=== PATIENT | male | born 1955 ===

== ENCOUNTER 2016-12-06 06:47 | Day surgery (SDC) | payer BC ==
[2016-11-29 11:17] VITALS: BMI 24.3
[2016-12-06] MEDS ORDERED: Propofol 10 mg/ml Inj (20 ML) ONE (07:50)
[2016-12-06] MEDS ORDERED: Lidocaine 1% Inj (20ml) ONE (07:50)
[2016-12-06] MEDS ORDERED: Sodium Chloride 0.9% 1,000 ML IV SCH (08:30)
[2016-12-06 09:24] VITALS: RESP 16; TEMP 97.4; O2SAT 100
[2016-12-06 09:29] VITALS: BP 112/81; PULSE 53
== END 2016-12-06 09:40 | disposition home or self-care (01) ==
LOC: ENDO 06:47
PROVIDERS: ATTEND Internal Medicine Gastroenterology
DX: Z12.11 Encounter for screening for malignant neoplasm of colon (principal); K64.0 First degree hemorrhoids
CPT/HCPCS: 45378; 82948; J2704; J7040 ×2

== ENCOUNTER 2017-08-29 22:52 | Observation (INO) | payer BC ==
--- NOTE | 2017-08-29 23:30 | ED PDOC ---
Arrival/HPI - General Chief Complaint: Medical Clearance Time Seen by Provider: 08/29/17 23:24 Historian: Patient - History of Present Illness Narrative History of Present Illness (Text): 08/29/17 23:25 A 62 year old male, whose past medical history includes hyperlipidemia and diabetes, is brought into the emergency department from another institution for a complaint of sudden onset nausea, diaphoresis, headache, and lightheadedness. The patient notes that he began to experience his symptoms today at around 2PM and was seen in an urgent care and then transferred to [facility]. The patient denies fevers, chills, chest pain, shortness of breath, dyspnea on exertion, cough, abdominal pain, vomiting, diarrhea, urinary/bowel changes, or any other complaint. PMD: Dr. Aguirre Time/Duration: Other (2 PM today) Symptom Onset: Sudden Symptom Course: Unchanged Activities at Onset: Rest, Light Context: Home Past Medical History - Provider Review Nursing Documentation Reviewed: Yes - Infectious Disease Hx of Infectious Diseases: None - Tetanus Immunization Tetanus Immunization: Unknown - Cardiac Hx Pacemaker: No - Neurological Hx Paralysis: No - Endocrine/Metabolic Hx Hypothyroidism: Yes - Hematological/Oncological Hx Blood Transfusions: No Hx Blood Transfusion Reaction: No - Musculoskeletal/Rheumatological Hx Musculoskeletal Disorders: No - Psychiatric Hx Emotional Abuse: No Hx Physical Abuse: No Hx Substance Use: No - Anesthesia Hx Anesthesia Reactions: No Hx Malignant Hyperthermia: No - Suicidal Assessment Feels Threatened In Home Enviroment: No Family/Social History - Physician Review Nursing Documentation Reviewed: Yes Family/Social History: No Known Family HX Smoking Status: Never Smoked Hx Alcohol Use: No Hx Substance Use: No Hx Substance Use Treatment: No Allergies/Home Meds Allergies/Adverse Reactions: Allergies No Known Allergies Allergy (Verified 08/29/17 22:58) Home Medications: Home Meds Medication Instructions Recorded Confirmed Atorvastatin [Lipitor] 20 mg PO DIN 11/29/16 08/29/17 metFORMIN [glucOPHAGE] 500 mg PO BID 11/29/16 08/29/17 Review of Systems - Physician Review All systems were reviewed & negative as marked: Yes - Review of Systems Constitutional: absent: Fevers, Night Sweats Respiratory: absent: SOB, Cough Cardiovascular: absent: Chest Pain, JOE Gastrointestinal: Nausea. absent: Abdominal Pain, Stool Changes, Diarrhea, Vomiting Genitourinary Male: absent: Urinary Output Changes Neurological: Headache, Dizziness (Lightheaded) Endocrine: Diaphoresis Physical Exam Vital Signs Reviewed: Yes Vital Signs Temp Pulse Pulse Resp BP Pulse Ox 08/30/17 03:15 99 08/30/17 03:00 97.8 F 59 L 60 18 109/77 08/30/17 02:35 62 18 111/60 97 08/29/17 23:00 97.9 F 78 18 115/79 99 Temperature: Afebrile Blood Pressure: Normal Pulse: Regular Respiratory Rate: Normal Appearance: Positive for: Well-Appearing, Non-Toxic, Comfortable Pain Distress: None Mental Status: Positive for: Alert and Oriented X 3 - Systems Exam Head: Present: Atraumatic, Normocephalic Pupils: Present: PERRL Extroacular Muscles: Present: EOMI, Other (Patient is noted to have periorbital twitching while being interviewed.) Conjunctiva: Present: Normal Mouth: Present: Moist Mucous Membranes Neck: Present: Normal Range of Motion. No: JVD Respiratory/Chest: Present: Clear to Auscultation, Good Air Exchange. No: Respiratory Distress, Accessory Muscle Use Cardiovascular: Present: Normal S1, S2. No: Regular Rate and Rhythm (Slow, regular rhythm.), Murmurs Abdomen: No: Tenderness, Distention, Peritoneal Signs, Mass/Organomegaly Back: Present: Normal Inspection Upper Extremity: Present: Normal Inspection. No: Cyanosis, Edema Lower Extremity: Present: Normal Inspection, NORMAL PULSES (2+ bipedal pulses.) . No: Edema Neurological: Present: GCS=15, CN II-XII Intact, Speech Normal, Motor Func Grossly Intact, Normal Sensory Function Skin: Present: Dry, Normal Color, Diaphoretic (mildly diaphoretic to touch.), Cold. No: Rashes Psychiatric: Present: Alert, Oriented x 3, Normal Insight, Normal Concentration Medical Decision Making ED Course and Treatment: 08/29/17 23:30 Impression: A 62 year old male presents to the emergency department from another institution with complaint of sudden onset headache, nausea, diaphoresis, and lightheadedness. Differential Diagnosis included but are not limited to: Atypical angina Plan: -- EKG -- Chest X-ray -- Labs -- Urinalysis -- Reassess and disposition Progress Notes: 08/29/17 23:34: Will admit patient to Dr. Aguirre's service for observation. 08/29/17 23:42 EKG: Ordered, reviewed, and independently interpreted the EKG. Rate : 57 BPM Rhythm : Sinus Bradycardia Interpretation : Normal axis. Mild increase in QRS interval. Right Bundle pattern. No acute ST-T wave changes. No ectopy. 08/30/17 03:39: Chest X-ray read and interpreted by me shows no acute disease. Negative Chest X-ray . 08/30/17 03:42 I have discussed the results and plan with the patient, who expresses understanding. Patient in agreement with plan to be admitted to Dr. Aguirre's service. - Lab Interpretations Lab Results: 08/29/17 23:52 08/29/17 23:52 Lab Results 08/30/17 00:22: Urine Color Light yellow, Urine Appearance Clear, Urine pH 7.5, Ur Specific [place] 1.025, Urine Protein 100 H, Urine Glucose (UA) Negative, Urine Ketones 15 H, Urine Blood Negative, Urine Nitrate Negative, Urine Bilirubin Negative, Urine Urobilinogen 0.2, Ur Leukocyte Esterase Negative, Urine RBC 1 - 3, Urine WBC 0 - 2, Ur Epithelial Cells 1 - 3, Urine Bacteria Mod , Urine Other Usperm 08/29/17 23:52: Sodium 136, Potassium 4.4, Chloride 101, Carbon Dioxide 25, Anion Gap 14, BUN 17, Creatinine 0.7 L, Est GFR ( Amer) > 60, Est GFR ( Non-Af Amer) > 60, Random Glucose 124 H, Calcium 9.2, Magnesium 2.1, Total Bilirubin 0.9, AST 34, ALT 35, Alkaline Phosphatase 48, Lactate Dehydrogenase 426, Total Creatine Kinase 205, Troponin I < 0.01, Total Protein 7.4, Albumin 4.3, Globulin 3.0, Albumin/Globulin Ratio 1.4 08/29/17 23:52: PT 11.9, INR 1.04 08/29/17 23:52: WBC 9.9, RBC 4.96, Hgb 13.6 L, Hct 40.8 L, MCV 82.3, MCH 27.4, MCHC 33.3, RDW 12.8, Plt Count 149, MPV 11.0, Gran % 80.9 H, Lymph % (Auto) 13.4 L, [place] % (Auto) 5.5, Eos % (Auto) 0.1 L, Baso % (Auto) 0.1, Gran # 8.00 H , Lymph # (Auto) 1.3, [place] # (Auto) 0.5, Eos # (Auto) 0.0, Baso # (Auto) 0.01 I have reviewed the lab results: Yes - RAD Interpretation Radiology Orders: 08/29/17 23:24 CHEST PORTABLE [RAD] Stat - EKG Interpretation Interpreted by ED Physician: Yes Type: 12 lead EKG - Medication Orders Current Medication Orders: Discontinued Medications Ondansetron HCl (Zofran Inj) 4 mg IVP STAT STA Stop: 08/29/17 23:59 Last Admin: 08/30/17 00:07 Dose: 4 mg IVP Administration Document 08/30/17 00:07 SS (Rec: 08/30/17 00:07 SS [id number]) Charges for Administration # of IVP Administrations 1 - Scribe Statement The provider has reviewed the documentation as recorded by the Scribe Liss Archibald Provider Scribe Attestation: All medical record entries made by the Scribe were at my direction and personally dictated by me. I have reviewed the chart and agree that the record accurately reflects my personal performance of the history, physical exam, medical decision making, and the department course for this patient. I have also personally directed, reviewed, and agree with the discharge instructions and disposition. Disposition/Present on Arrival - Present on Arrival Any Indicators Present on Arrival: No History of DVT/PE: No History of Uncontrolled Diabetes: No Urinary Catheter: No History of Decub. Ulcer: No History Surgical Site Infection Following: None - Disposition Have Diagnosis and Disposition been Completed?: Yes Diagnosis: Angina pectoris Disposition: HOSPITALIZED Disposition Time: 04:39 Patient Plan: Observation Condition: FAIR
[2017-08-30 00:28] LABS: BASO # 0.01 K/mm3 (0.0-2.0); BASO % 0.1 % (0.0-3.0); EOS % 0.1 % (1.5-5.0); GRAN % 80.9 % (50.0-68.0); HEMOGLOBIN 13.6 g/dL (14.0-18.0); LYMPH # 1.3 (1.2-3.4); LYMPH % 13.4 % (22.0-35.0); MEAN CELL VOLUME 82.3 fl (80.0-105.0); MEAN CORPUSCULAR HEMOGLOBIN 27.4 pg (25.0-35.0); MEAN CORPUSCULAR HGB CONC 33.3 g/dl (31.0-37.0); MONO # 0.5 (0.1-0.6); MONO % 5.5 % (1.0-6.0); RBC 4.96 10^6/uL (3.5-6.1); RED CELL DISTRIBUTION WIDTH 12.8 % (11.5-14.5); WHITE BLOOD COUNT 9.9 10^3/ul (4.5-11.0)
[2017-08-30 00:57] LABS: ALB/GLOB RATIO 1.4 (1.1-1.8); ALBUMIN 4.3 g/dL (3.0-4.8); ALT/SGPT 35 U/L (7-56); AST/SGOT 34 U/L (17-59); BLOOD UREA NITROGEN 17 mg/dL (7-21); CALCIUM 9.2 mg/dL (8.4-10.5); GFR AFRICAN-AMERICAN > 60; GFR NON-AFRICAN AMERICAN > 60; INR 1.04 (0.93-1.08); PROTHROMBIN TIME 11.9 SECONDS (9.4-12.5)
[2017-08-30 01:06] LABS: PH,URINE 7.5 (4.7-8.0); URINE BILIRUBIN NEGATIVE (NEGATIVE); URINE BLOOD NEGATIVE (NEGATIVE); URINE GLUCOSE (UA) NEGATIVE (NEGATIVE); URINE LEUKOCYTE ESTERASE NEGATIVE Leu/uL (NEGATIVE); URINE PROTEIN 100 mg/dL (<30 mg/dL); URINE UROBILINOGEN 0.2 E.U./dL (<1 E.U./dL)
[2017-08-30 01:08] LABS: URINE APPEARANCE CLEAR (CLEAR); URINE COLOR LIGHT YELLOW (YELLOW)
[2017-08-30 01:35] LABS: TROPONIN I < 0.01 ng/mL
[2017-08-30 01:54] LABS: URINE WBC 0 - 2 /hpf (0-6)
[2017-08-30 01:55] LABS: URINE BACTERIA MOD (NEG)
[2017-08-30 03:55] VITALS: BMI 24.5
[2017-08-30 06:17] VITALS: O2SAT 98
[2017-08-30 07:47] LABS: TROPONIN I < 0.01 ng/mL
[2017-08-30 08:59] LABS: IRON 68 ug/dL (45-180)
[2017-08-30 09:10] LABS: % IRON SATURATION 19 % (20-55); TOTAL IRON BINDING CAPACITY 359 ug/dL (261-462)
--- NOTE | 2017-08-30 09:13 | RAD ---
HISTORY: Chest pain COMPARISON: 07/26/2013 FINDINGS: LUNGS: No active pulmonary disease. PLEURA: No significant pleural effusion identified, no pneumothorax apparent. CARDIOVASCULAR: Normal. OSSEOUS STRUCTURES: No significant abnormalities. VISUALIZED UPPER ABDOMEN: Normal. OTHER FINDINGS: None. IMPRESSION: No active disease. No significant interval change compared to the prior examination(s).
[2017-08-30] MEDS: Insulin Reg-LOW-Coverage SC SCH ×2 (12:17→17:07)
[2017-08-30 12:31] LABS: FOLATE 15.8 ng/mL
[2017-08-30 13:20] VITALS: BP 124/76; PULSE 64; RESP 21; TEMP 97
[2017-08-30 13:25] LABS: TROPONIN I < 0.01 ng/mL
--- NOTE | 2017-08-30 13:50 | CON ---
DATE: 08/30/2017 REASON FOR CONSULTATION: Nausea with associated bradycardia. HISTORY OF PRESENT ILLNESS: This is a 62-year-old male who is known to have diabetes, hyperlipidemia. States that yesterday, with nausea, he also felt , headache, and lightheadedness. Denies any chest pain, shortness of breath, or palpitation. No history of diarrhea. The patient felt like vomiting, but he states he never vomited. The patient's nausea continued. Now, the patient does not have any nausea, he has improved, and he does not have any other symptoms associated with it. The patient went to the Emergency Room and was found to have bradycardia at the time of nausea. PAST MEDICAL HISTORY: Not significant except the patient has diabetes and hyperlipidemia. PERSONAL HISTORY: No history of smoking. No history of drinking. ALLERGIES: DENIES ANY ALLERGIES. FAMILY HISTORY: Brother has coronary artery disease. HOME MEDICATIONS: Included metformin 500 mg b.i.d. and Lipitor 20 daily. REVIEW OF SYSTEMS: All the systems reviewed, positive mentioned in the history, others were negative. PHYSICAL EXAMINATION: VITAL SIGNS: Blood pressure 109/77, respirations 18, pulse 59, temperature 97.8. HEENT: Head: Normocephalic. Eyes: Pupils normal, conjunctivae normal. Nose and throat normal. NECK: JVP low. Carotid equal. THORAX: AP diameter normal. LUNGS: Clear. CARDIOVASCULAR: S1 and S2. ABDOMEN: Soft. No tenderness. No organomegaly. Bowel sounds normal. EXTREMITIES: No clubbing. No cyanosis. LABORATORY DATA: Show WBC 9.9, hemoglobin 13.6, hematocrit 40.8, and platelets 149. Sodium 136, potassium 4.4, BUN 17, creatinine 0.7. AST and ALT normal. Troponin x2 negative. Total protein and albumin normal. TSH is pending. EKG showed sinus bradycardia, no acute changes. DIAGNOSES: Bradycardia with nausea, most likely vasovagal. As soon as the nausea improved, the patient's other symptoms improved. Diabetes mellitus and hyperlipidemia. PLAN: We will check TSH and we will do echo and later on, the patient will need nuclear stress test, but I think this bradycardia was vasovagal and heart rate was in 50s. The patient did not require any treatment. We will also check lipid profile and we will follow with you. Mamie Roldan MD [facility] # [id number]
[2017-08-30] MEDS ORDERED: Apap-Butalbital-Caffeine 325-50-40mg Tab PO PRN (15:20)
--- NOTE | 2017-08-30 15:40 | CON ---
DATE: 08/30/2017 NEUROLOGY CONSULT CHIEF COMPLAINT: Headache. HISTORY OF PRESENT ILLNESS: This is a 62-year-old man with past medical history of hyperlipidemia and diabetes, brought in to the Emergency Department because of sudden onset of nausea, diaphoresis, headache, lightheadedness and was brought in to the hospital. He had a vasovagal event. He was bradycardic. He also was hypoglycemic and had low systolic and diastolic blood pressures. Cardiology is on board. Currently, he is no longer having headache, but his headache was diffuse, pressure type initially. No acute events overnight. He did have episode of hypoglycemia this morning of 59. Currently, he is moving all extremities. No focal deficits seen. He was mildly dehydrated. REVIEW OF SYSTEMS: Fourteen-point review of systems was negative except as per the HPI. FAMILY HISTORY: Noncontributory. SOCIAL HISTORY: No illicit drug use, smoking or EtOH abuse. MEDICATIONS: Reviewed by nurses' reconciliation sheet. PAST MEDICAL HISTORY: As above. LABORATORY DATA: Blood glucose today is 59. PHYSICAL EXAMINATION: VITAL SIGNS: Temperature 97, pulse rate of 64, blood pressure 124/76, respiratory rate of 21, oxygen saturation 96% by room air. GENERAL: The patient is sitting up in bed, in no acute distress. HEENT: Atraumatic, normocephalic. PERRLA. Extraocular muscles intact. NECK: Supple. No JVD. No adenopathy noted. LUNGS: Clear to auscultation. No adventitious sounds. HEART: S1, S2. Normal rate and rhythm. No murmurs, rubs or gallops. ABDOMEN: Soft, nontender and nondistended. Bowel sounds are present. EXTREMITIES: No clubbing. No cyanosis. Peripheral pulses 2+ felt bilaterally. NEUROLOGIC: The patient is alert and oriented to person, place, month and year. Speech is fluent without any errors. Cranial nerves II through XII intact. Motor exam: Moves all extremities equally. Toes are downgoing bilaterally. No pronator drift seen. Sensory exam: Light touch and pinprick slightly decreased at the calves bilaterally. Decreased vibration of the toes. DTRs are 2+ throughout. Coordination: [id number] intact. No dysmetria noted. Gait is deferred for now. ASSESSMENT AND PLAN: This is a 62-year-old man with history of diabetes, hypertension, dyslipidemia, who came in for diaphoresis, lightheadedness and some diffuse pressure headache. He had evidence of symptomatic bradycardia. Cardiology is on board with a vasovagal component. In addition, his headache was secondary to underlying general transient hypoglycemia and today his blood sugar is 57. At this time, recommend, 1. Fioricet 1 tablet every 4 hours with the acute onset of headache. 2. Monitor electrolytes and correct accordingly. 3. Keep his blood sugars between 140-180 and avoid hypoglycemic events. 4. Follow up with Cardiology in regards to bradycardia and continue on current present medical management. Thank you for this consult. Abhijeet José MD
--- NOTE | 2017-08-30 22:47 | CARD ---
APPROVED REPORT EKG Measurement Heart [id number] <Conclusion> Sinus bradycardia Incomplete right bundle branch block Borderline ECG
--- NOTE | 2017-08-31 00:59 | HP ---
The patient was seen and examined on 08/30/2017 on the bedside. CHIEF COMPLAINT: Nausea, vomiting, headache, dizziness. HISTORY OF PRESENT ILLNESS: Mr. Ramy Galan, 62-year-old male with past medical history of hypertension, hypercholesterolemia, diabetes mellitus. He is my private patient. Brought to the Emergency Department from [facility] because the patient has been complaining of sudden onset nausea, diaphoresis, headache, lightheadedness. The patient went to [facility]. They called me. I faxed them the patient's EKG report from my office, then I talked to them. According to them, the patient need admission. Then, we decided the patient to come to [facility]. In [facility], the patient was admitted. Denies fever, chills. No dyspnea on exertion. No cough. No abdominal pain. When I saw him today, no nausea, vomiting, even no chest pain. Seen by chief passenger ship steward/stewardess, Dr. Roldan, cleared the patient for discharge. Seen by neurologist, cleared the patient for discharge. Follow up as outpatient. PAST MEDICAL HISTORY: Hypothyroidism, diabetes mellitus, hypertension, hypercholesterolemia. FAMILY HISTORY: Father and mother, noncontributory. HABITS: No smoking. No drugs. No ethanol. ALLERGIES: THE PATIENT IS NOT ALLERGIC WITH ANY MEDICATION. HOME MEDICATIONS: Lipitor, metformin. REVIEW OF SYSTEMS: The patient was seen and examined on the bedside in the telemetry floor in his room. At that moment, no fever, no chills, no night sweats, no shortness of breath, no coughing, no chest pain, no abdominal pain, no stool changes, no diarrhea, no nausea or vomiting, no urinary complaints, no headache, no dizziness. Has history of lightheadedness and history of diaphoresis. PHYSICAL EXAMINATION: VITAL SIGNS: Temperature 97.9, pulse 78, respiratory rate 18, blood pressure 115/79, pulse oximetry 99. HEENT: Head normocephalic, atraumatic. Eyes PERRLA. Extraocular muscles intact. Conjunctivae clear. Nose patent. Mucous membrane moist. NECK: Supple. No carotid bruit. No JVD or thyromegaly. CHEST: Bilaterally symmetrical. HEART: S1 and S2 positive. LUNGS: Clear to auscultation. ABDOMEN: Soft. Bowel sounds positive. No organomegaly. EXTREMITIES: No edema. No cyanosis. NEUROLOGICAL: The patient is awake and alert. Moving all 4 extremities. No focal deficits. LABORATORY DATA: White blood cells 9.9, hemoglobin 13.6, hematocrit 40.8, platelet count 49. Sodium 139, potassium 4.4, BUN 17, creatinine 0.7, glucose 124. ASSESSMENT AND PLAN: Mr. Ramy Galan, 62-year-old male with anemia, was admitted with angina pectoris, history of hypercholesterolemia, diabetes mellitus, hypertension. Seen by the chief passenger ship steward/stewardess, Dr. Roldan. Echocardiography done. Chest x-ray done. According to Dr. Roldan, the patient has bradycardia with nausea, most likely vasovagal. As soon as nausea improved, the patient's other symptoms improved, Dr. Roldan want to do echocardiogram and may be nuclear stress test as outpatient. The patient do not require any treatment as per chief passenger ship steward/stewardess. Seen by Dr. Abhijeet José. History of diaphoresis and lightheadedness and some diffuse pressure headache. According to chief passenger ship steward/stewardess, the patient's headache could be due to hypoglycemic attack. Blood sugar of 57. Fioricet given. Monitoring electrolytes and blood sugar. Lip Of Shank Cutter and neurologist both cleared the patient. Continue home medications. We will follow up stress test and left over testing as outpatient. Jewell Aguirre MD MTDShanae
--- NOTE | 2017-08-31 06:01 | DS ---
Patient is a 64-fcpmy-gev male. I saw the patient only once in the telemetry in his room on 08/30/2017 and I did history and physical for 08/30/2017, and patient was discharged on the same day after getting clearance from Cardiology and Neurology. For details, see my H and P. Jewell Aguirre MD
--- NOTE | 2017-09-01 16:11 | CARD ---
APPROVED REPORT EXAM: Two-dimensional and M-mode echocardiogram with Doppler and color Doppler. INDICATION 2D DIMENSIONS IVSd0.8 (0.7-1.1cm)LVDd4.6 (3.9-5.9cm) PWd0.8 (0.7-1.1cm)LVDs3.2 (2.5-4.0cm) FS (%) 30.2 %LVEF (%)57.5 (>50%) M-Mode DIMENSIONS Left Atrium (MM)3.10 (2.5-4.0cm)Aortic Root4.00 (2.2-3.7cm) Aortic Cusp Exc.2.30 (1.5-2.0cm) Aortic Valve AoV Peak Hnibwsur571.0cm/Molly Peak GR.4mmHg Mitral Valve MV E Ntzvphjw11.5cm/sMV A Gimojrdj75.9cm/sE/A ratio1.5 TDI Lateral E' Peak V11.90cm/sMedial E' Peak V9.07cm/sE/Lateral E'5.8 E/Medial E'7.6 Tricuspid Valve TR Peak Bcmdmcax184mm/sRAP [id number] Peak Gr.15mmHg [id number] LEFT VENTRICLE The left ventricle is normal size. There is normal left ventricular wall thickness. The left ventricular function is normal. The left ventricular ejection fraction is within the normal range. 57%. There is normal LV segmental wall motion. RIGHT VENTRICLE The right ventricle is normal size. The right ventricular systolic function is normal. ATRIA The left atrium size is normal. The right atrium size is normal. AORTIC VALVE The aortic valve is normal in structure. MITRAL VALVE The mitral valve is normal in structure. Mitral regurgitation is trace. TRICUSPID VALVE The tricuspid valve is normal in structure. There is trace tricuspid regurgitation. PULMONIC VALVE There is trace pulmonic valvular regurgitation. GREAT VESSELS Upper limit of Normal. PERICARDIAL EFFUSION There is no pericardial effusion. <Conclusion> The left ventricle is normal size. There is normal left ventricular wall thickness. The left ventricular function is normal. The left ventricular ejection fraction is within the normal range. 57%. The right ventricle is normal size. The right ventricular systolic function is normal. The left atrium size is normal. The right atrium size is normal. The aortic valve is normal in structure. Mitral regurgitation is trace. The tricuspid valve is normal in structure. There is trace tricuspid regurgitation. Aortic Root Upper limit of Normal. There is no pericardial effusion.
== END 2017-08-30 17:32 | disposition home or self-care (01) ==
LOC: ED 22:52 → ERH 08-30 01:49 → 2RSO 08-30 03:22
PROVIDERS: ADMIT Internal Medicine; ATTEND Internal Medicine
DX: E11.649 Type 2 diabetes mellitus with hypoglycemia without coma (principal); R00.1 Bradycardia, unspecified; I20.9 Angina pectoris, unspecified; I10 Essential (primary) hypertension; E78.00 Pure hypercholesterolemia, unspecified; E86.0 Dehydration; E03.9 Hypothyroidism, unspecified; D64.9 Anemia, unspecified
CPT/HCPCS: 36415; 71045; 80053; 80061; 81001; 82550; 82607; 82746; 82948; 83036; 83540; 83550; 83615; 83735; 84484; 85025; 85610; 93005; 93306; 96374; 99285; G0378; J2405